=== PATIENT | female | born 1965 | race Caucasian/White ===

== ENCOUNTER 2018-07-22 08:36 | Day surgery (SDC) | payer OTHER ==
[~2018-07-22] VITALS: Ht 165.1 cm; Wt 101.2 kg
[~2018-07-22 08:36] MED LIST: ADULT LOW DOSE81 MG PO; AMITRIPTYLINE100 MG PO; CLINDAMYCIN HC300 MG PO; CO Q-1050 MG PO; DAILY VITAMIN1 EAC3 PO; FISH OIL500 MG PO; GEMFIBROZIL600 MG PO; GLIPIZIDE10 MG PO; GLUCOPHAGE1000 MG PO; GLUCOSAMINE &1 EAC1 PO; IBUPROFEN800 MG PO; IRON236 MG PO; LIPITOR80 MG PO; NEURONTIN100 MG PO; NORCO 10-325 T1 EACH PO; NORCO 5-325 TA1 EACH PO
--- NOTE | 2018-07-22 09:55 | NUR ---
07/22/18 0955 Dipika Chua 0933 PATIENT ARRIVES TO PACU SLEEPING, WAKES UP WITH VERBAL STIMULI, ANSWERS QUESTIONS APPROPRIATELY. RESP EVEN AND UNLABORED, ROOM AIR SATS ABOVE 90%. PATIENT DENIES PAIN OR NAUSEA. PASSING GAS.
--- NOTE | 2018-07-23 08:59 | OR ---
[facility] [address], [place] [address] Signed DATE OF OPERATION: 07/22/2018 SURGEON: Liz Agustin MD PREOPERATIVE DIAGNOSES: 1. Screening. 2. Iron-deficiency anemia. POSTOPERATIVE DIAGNOSES: 1. A 4 mm polyps at proximal left colon 10 cm, 8 cm, and 5 cm. 2. Moderate sigmoid diverticulosis. PROCEDURE: Colonoscopy with hot biopsy. ESTIMATED BLOOD LOSS: None. INDICATIONS: Radha is a 52-year-old female asked to see me for her initial colonoscopy. She had been significantly anemic and was bleeding from uterine polyp. She has had that taken care of and is doing much better. She has remained on her iron therapy now for a couple of years. She said to her knowledge she has improved. In addition, she reminded me I have already performed a colonoscopy for her . Consequently, she is familiar with the procedure along with our bowel prep. She told me she is quite nervous about having a colonoscopy. We spent quite a bit of time with her in the office, going over a colonoscopy and the reasoning behind it. To her knowledge, there is no family history of colon cancer or polyps. She understands the need for IV conscious sedation. She had expressed understanding and wished to proceed. PROCEDURE NOTE: Radha was taken into our endoscopy suite and placed in the left lateral decubitus position. She was given a total of 10 mg of Versed and 150 mcg of fentanyl. A digital rectal exam was performed and this was unremarkable. The adult colonoscope was introduced and advanced all around into the cecum under direct visualization of the camera. It took a rotating Radha into the supine position along with some additional sedation in order to get the camera through her long redundant colon finally through the splenic and had hepatic flexures and into the cecum itself. The appendiceal orifice was easily identified along with Crohn's foot. Multiple pictures were taken throughout for photodocumentation. After this, the scope was slowly withdrawn. The above-mentioned Electronically Signed By: LIZ AGUSTIN MD 07/23/18 0859 PATIENT NAME: RADHA GUPTA OPERATIVE REPORT DATE OF : 63 REPORT #: [id number] PHYSICIAN: LIZ AGUSTIN MD PCP: TEJA HOPPER MD REPORT IS CONFIDENTIAL AND NOT TO BE RELEASED WITHOUT AUTHORIZATION [facility] [address], [place] [address] Signed polyps were easily removed with the help of hot biopsy forceps. Again, she has a long redundant colon, particularly the transverse and left colon. In the sigmoid colon, she does have moderate diverticulosis. They are moderate in size, moderate in number, and scattered about. Once in the rectum, the scope had been retroflexed and there was very little in the way of internal hemorrhoid tissue. After this, the gas was suctioned out and the colonoscope removed. Radha tolerated her procedure quite well. RECOMMENDATIONS: I will see Radha back in my office in 7 to 14 days to review her results. Liz Agustin MD ALB/MODL /[id number] cc: MD Ervin Newton DO Andrew L Bower, MD Copies: TEJA HOPPER MD,LIZ JONES MD ~ Electronically Signed By: LIZ AGUSTIN MD 07/23/18 0859 PATIENT NAME: RADHA GUPTA OPERATIVE REPORT DATE OF : 63 REPORT #: [id number] PHYSICIAN: LIZ AGUSTIN MD PCP: TEJA HOPPER MD REPORT IS CONFIDENTIAL AND NOT TO BE RELEASED WITHOUT AUTHORIZATION
== END 2018-07-22 10:25 | disposition home or self-care (01) ==
LOC: DS 08:36 → OPS 08:36 → DS 09:45 → OPS 10:25
PROVIDERS: Colon & Rectal Surgery
PROC: 0DBE8ZZ Excision of Large Intestine, Via Natural or Artificial Opening Endoscopic (ICD-10-PCS; 2018-07-22)
PROC: 0DBM8ZZ Excision of Descending Colon, Via Natural or Artificial Opening Endoscopic (ICD-10-PCS; principal; 2018-07-22 09:45)
DX: D12.6 Benign neoplasm of colon, unspecified (principal); K63.5 Polyp of colon; K57.30 Diverticulosis of large intestine without perforation or abscess without bleeding; D50.9 Iron deficiency anemia, unspecified; E78.1 Pure hyperglyceridemia; E66.9 Obesity, unspecified; E11.40 Type 2 diabetes mellitus with diabetic neuropathy, unspecified; F17.210 Nicotine dependence, cigarettes, uncomplicated; Z68.37 Body mass index [BMI] 37.0-37.9, adult; Z79.84 Long term (current) use of oral hypoglycemic drugs; Z79.82 Long term (current) use of aspirin; Z79.899 Other long term (current) drug therapy
CPT/HCPCS: 88305; 99153; G0500; J2250; J3010; J7120

== ENCOUNTER 2023-01-27 11:08 | Emergency (ER) | payer OTHER ==
[~2023-01-27] VITALS: Ht 165.1 cm; Wt 87.9 kg
--- OUTSIDE RECORDS SUMMARY | ~2023-01-27 | XMS | Continuity of Care Document ---
Demographics + + + | Address | [address] | | | [place] [address] | + + + | Preferred Language | Unknown | + + + | Marital Status | | + + + | Judaism Affiliation | Unknown | + + + | Race | White | + + + | Ethnic Group | Not or | + + + Author + + + | Author | [facility] | + + + | Organization | [facility] | + + + | Address | [address] [facility] | | | [place] [address] | + + + | Phone | | + + + Care Team Providers + + + + | Care Event Av Operator Name | Role | Phone | + + + + Unavailable | Unavailable | + + + + Unavailable | Unavailable | + + + + Allergies and Intolerances + + + + + | date | description | facility | type | + + + + + | (no date) | No Known Allergies | [facility] | (unknown) | | | | | | + + + + + Encounters No information. Functional Status No information. Immunizations No information. Medications + + + + | date | description | facility | + + + + | 2023-01-13 00:00 | GABAPENTIN | [facility] | + + + + | 2023-01-13 00:00 | IBUPROFEN | [facility] | + + + + | 2023-01-13 00:00 | UBIDECARENONE | [facility] | + + + + | 2023-01-13 00:00 | ATORVASTATIN | [facility] | + + + + | 2014-01-25 00:00 | CLINDAMYCIN HCL | [facility] | + + + + | 2023-01-13 00:00 | ASPIRIN | [facility] | + + + + | 2023-01-13 00:00 | GEMFIBROZIL | [facility] | + + + + | 2023-01-13 00:00 | GLIPIZIDE | [facility] | + + + + | 2023-01-13 00:00 | NITROFURANTOIN MONOHYD | [facility] | | | MACROCR | | + + + + | 2023-01-13 00:00 | AMITRIPTYLINE HCL | [facility] | + + + + | 2014-01-25 00:00 | HYDROCODONE/APAP | [facility] | | | (10-325MG) | | + + + + | 2023-01-13 00:00 | HYDROCODONE | [facility] | | | BIT/ACETAMINOPHEN | | + + + + | 2023-01-13 00:00 | metFORMIN HCL | [facility] | + + + + Problems + + + + | date | description | facility | + + + + | 2022-11-11 08:15 | ENCNTR SCREEN MAMMOGRAM | [facility] | | | FOR MALIGNANT NEOPLASM OF | | | | BREAST | | + + + + | 2023-01-13 00:00 | Dehydration | [facility] | + + + + | 2023-01-13 00:00 | Urinary tract infection | [facility] | + + + + | 2023-01-13 00:00 | Liver mass | [facility] | + + + + | 2023-01-13 18:56 | TYPE 2 DIABETES MELLITUS | [facility] | | | WITHOUT COMPLICATIONS | | + + + + | 2023-01-13 18:56 | HYPERLIPIDEMIA, | [facility] | | | UNSPECIFIED | | + + + + | 2023-01-13 18:56 | DEHYDRATION | [facility] | + + + + | 2023-01-13 18:56 | NICOTINE DEPENDENCE, | [facility] | | | UNSPECIFIED, UNCOMPLICATED | | + + + + | 2023-01-13 18:56 | Essential (primary) | [facility] | | | hypertension | | + + + + | 2023-01-13 18:56 | CALCULUS OF GALLBLADDER | [facility] | | | W/O CHOLECYSTITIS W/O OBST | | + + + + | 2023-01-13 18:56 | URINARY TRACT INFECTION, | [facility] | | | SITE NOT SPECIFIED | | + + + + | 2023-01-13 18:56 | HEPATOMEGALY, NOT | [facility] | | | ELSEWHERE CLASSIFIED | | + + + + | 2023-01-13 18:56 | ANOREXIA | [facility] | + + + + | 2023-01-13 18:56 | HALFWAY (CURRENT) USE OF | [facility] | | | ASPIRIN | | + + + + | 2023-01-13 18:56 | HALFWAY (CURRENT) USE OF | [facility] | | | ORAL HYPOGLYCEMIC DRUGS | | + + + + | 2023-01-13 18:56 | OTHER CHART CLERK (CURRENT) | [facility] | | | DRUG THERAPY | | + + + + | 2023-01-23 08:00 | HEPATOMEGALY, NOT | [facility] | | | ELSEWHERE CLASSIFIED | | + + + + | 2023-01-23 08:02 | HEPATOMEGALY, NOT | [facility] | | | ELSEWHERE CLASSIFIED | | + + + + Procedures No information. Results/Labs +--------+--------+ + +---------+--------+ + | test | date | author | facility | value | unit | | | | | | | | | interpreta | | | | | | | | tion | +--------+--------+ + +---------+--------+ + + + | Result panel 1 | + + + + + + +---------+ + + | (unknown) | (no date) | (unknown) | [facility] | (no | (units | (unknown) | | | [facility] | value) | unknown) [facility] | | | | + + + + +---------+ + + + + | Result panel 2 | + + + + + + +---------+ + + | (unknown) | (no date) | (unknown) | [facility] | (no | (units | (unknown) | | | | [facility] | value) | unknown) | | | [facility] | | | | + + + + +---------+ + + + + | Result panel 3 | + + + + + + +---------+ + + | (unknown) | (no date) | (unknown) | [facility] | (no | (units | (unknown) | | | | [facility] | value) | unknown) | | | | [facility] | | | | + + + + +---------+ + + + + | Result panel 4 | + + + + + + +---------+ + + | (unknown) | (no date) | (unknown) | [facility] | (no | (units | (unknown) | | | | [facility] | value) | unknown) | | | | [facility] | | | | + + + + +---------+ + + + + | Result panel 5 | + + + + + + +---------+ + + | (unknown) | (no date) | (unknown) | [facility] | (no | (units | (unknown) | | | | [facility] | value) | unknown) | | | | [facility] | | | | + + + + +---------+ + + + + | Result panel 6 | + + + + + + +---------+ + + | (unknown) | (no date) | (unknown) | [facility] | (no | (units | (unknown) | | | | [facility] | value) | unknown) | | | | [facility] | | | | + + + + +---------+ + + + + | Result panel 7 | + + + + + + +---------+ + + | (unknown) | (no date) | (unknown) | [facility] | (no | (units | (unknown) | | | | [facility] | value) | unknown) | | | | | [facility] | | | | + + + + +---------+ + + + + | Result panel 8 | + + + + + + +---------+ + + | (unknown) | (no date) | (unknown) | [facility] | (no | (units | (unknown) | | | | [facility] | value) | unknown) | | | | | [facility] | | | | + + + + +---------+ + + + + | Result panel 9 | + + + + + + +---------+ + + | (unknown) | (no date) | (unknown) | [facility] | (no | (units | (unknown) | | | | [facility] | value) | unknown) | | | | | [facility] | | | | + + + + +---------+ + + + + | Result panel 10 | + + + + + + +---------+ + + | (unknown) | (no date) | (unknown) | [facility] | (no | (units | (unknown) | | | | [facility] | value) | unknown) | | | | [facility] | | | | + + + + +---------+ + + + + | Result panel 11 | + + + + + + +---------+ + + | (unknown) | (no date) | (unknown) | [facility] | (no | (units | (unknown) | | | | [facility] | value) | unknown) | | | | [facility] | | | | + + + + +---------+ + + + + | Result panel 12 | + + + + + + +---------+ + + | (unknown) | (no date) | (unknown) | [facility] | (no | (units | (unknown) | | | | [facility] | value) | unknown) | | | | [facility] | | | | + + + + +---------+ + + + + | Result panel 13 | + + + + + + +---------+ + + | (unknown) | (no date) | (unknown) | [facility] | (no | (units | (unknown) | | | | [facility] | value) | unknown) | | | | [facility] | | | | + + + + +---------+ + + + + | Result panel 14 | + + + + + + +---------+ + + | (unknown) | (no date) | (unknown) | [facility] | (no | (units | (unknown) | | | | [facility] | value) | unknown) | | | | [facility] | | | | + + + + +---------+ + + + + | Result panel 15 | + + + + + + +---------+ + + | (unknown) | (no date) | (unknown) | [facility] | (no | (units | (unknown) | | | | [facility] | value) | unknown) | | | | [facility] | | | | + + + + +---------+ + + + + | Result panel 16 | + + + + + + +---------+ + + | (unknown) | (no date) | (unknown) | [facility] | (no | (units | (unknown) | | | | [facility] | value) | unknown) | | | | [facility] | | | | + + + + +---------+ + + + + | Result panel 17 | + + + + + + +---------+ + + | (unknown) | (no date) | (unknown) | [facility] | (no | (units | (unknown) | | | | [facility] | value) | unknown) | | | | | [facility] | | | | + + + + +---------+ + + + + | Result panel 18 | + + + + + + +---------+ + + | (unknown) | (no date) | (unknown) | [facility] | (no | (units | (unknown) | | | | [facility] | value) | unknown) | | | | | [facility] | | | | + + + + +---------+ + + + + | Result panel 19 | + + + + + + +---------+ + + | (unknown) | (no date) | (unknown) | [facility] | (no | (units | (unknown) | | | | [facility] | value) | unknown) | | | | | [facility] | | | | + + + + +---------+ + + + + | Result panel 20 | + + + + + + +---------+ + + | (unknown) | (no date) | (unknown) | [facility] | (no | (units | (unknown) | | | | [facility] | value) | unknown) | | | | [facility] | | | | + + + + +---------+ + + + + | Result panel 21 | + + + + + + +---------+ + + | (unknown) | (no date) | (unknown) | [facility] | (no | (units | (unknown) | | | | [facility] | value) | unknown) | | | | | [facility] | | | | + + + + +---------+ + + + + | Result panel 22 | + + + + + + +---------+ + + | (unknown) | (no date) | (unknown) | [facility] | (no | (units | (unknown) | | | | [facility] | value) | unknown) | | | | | [facility] | | | | + + + + +---------+ + + + + | Result panel 23 | + + + + + + +---------+ + + | (unknown) | (no date) | (unknown) | [facility] | (no | (units | (unknown) | | | | | [facility] | value) | unknown) | | | | | [facility] | | | | + + + + +---------+ + + + + | Result panel 24 | + + + + + + +---------+ + + | (unknown) | (no date) | (unknown) | [facility] | (no | (units | (unknown) | | | | [facility] | value) | unknown) | | | | | [facility] | | | | + + + + +---------+ + + + + | Result panel 25 | + + + + + + +---------+ + + | (unknown) | (no date) | (unknown) | [facility] | (no | (units | (unknown) | | | | [facility] | value) | unknown) | | | | [facility] | | | | + + + + +---------+ + + + + | Result panel 26 | + + + + + + +---------+ + + | (unknown) | (no date) | (unknown) | [facility] | (no | (units | (unknown) | | | | [facility] | value) | unknown) | | | | [facility] | | | | + + + + +---------+ + + + + | Result panel 27 | + + + + + + +---------+ + + | (unknown) | (no date) | (unknown) | [facility] | (no | (units | (unknown) | | | | [facility] | value) | unknown) | | | | [facility] | | | | + + + + +---------+ + + + + | Result panel 28 | + + + + + + +---------+ + + | (unknown) | (no date) | (unknown) | [facility] | (no | (units | (unknown) | | | | [facility] | value) | unknown) | | | | [facility] | | | | + + + + +---------+ + + + + | Result panel 29 | + + + + + + +---------+ + + | (unknown) | (no date) | (unknown) | [facility] | (no | (units | (unknown) | | | | [facility] | value) | unknown) | | | | [facility] | | | | + + + + +---------+ + + + + | Result panel 30 | + + + + + + +---------+ + + | (unknown) | (no date) | (unknown) | [facility] | (no | (units | (unknown) | | | | [facility] | value) | unknown) | | | | [facility] | | | | + + + + +---------+ + + + + | Result panel 31 | + + + + + + +---------+ + + | (unknown) | (no date) | (unknown) | [facility] | (no | (units | (unknown) | | | | [facility] | value) | unknown) | | | | [facility] | | | | + + + + +---------+ + + + + | Result panel 32 | + + + + + + +---------+ + + | (unknown) | (no date) | (unknown) | [facility] | (no | (units | (unknown) | | | | [facility] | value) | unknown) | | | | [facility] | | | | + + + + +---------+ + + + + | Result panel 33 | + + + + + + +---------+ + + | (unknown) | (no date) | (unknown) | [facility] | (no | (units | (unknown) | | | | [facility] | value) | unknown) | | | | [facility] | | | | + + + + +---------+ + + + + | Result panel 34 | + + + + + + +---------+ + + | (unknown) | (no date) | (unknown) | [facility] | (no | (units | (unknown) | | | | [facility] | value) | unknown) | | | | [facility] | | | | + + + + +---------+ + + + + | Result panel 35 | + + + + + + +---------+ + + | (unknown) | (no date) | (unknown) | [facility] | (no | (units | (unknown) | | | | [facility] | value) | unknown) | | | | [facility] | | | | + + + + +---------+ + + + + | Result panel 36 | + + + + + + +---------+ + + | (unknown) | (no date) | (unknown) | [facility] | (no | (units | (unknown) | | | | [facility] | value) | unknown) | | | | [facility] | | | | + + + + +---------+ + + + + | Result panel 37 | + + + + + + +---------+ + + | (unknown) | (no date) | (unknown) | [facility] | (no | (units | (unknown) | | | | [facility] | value) | unknown) | | | | [facility] | | | | + + + + +---------+ + + + + | Result panel 38 | + + + + + + +---------+ + + | (unknown) | (no date) | (unknown) | [facility] | (no | (units | (unknown) | | | | [facility] | value) | unknown) | | | | [facility] | | | | + + + + +---------+ + + + + | Result panel 39 | + + + + + + +---------+ + + | (unknown) | (no date) | (unknown) | [facility] | (no | (units | (unknown) | | | | [facility] | value) | unknown) | | | | [facility] | | | | + + + + +---------+ + + + + | Result panel 40 | + + + + + + +---------+ + + | (unknown) | (no date) | (unknown) | [facility] | (no | (units | (unknown) | | | | [facility] | value) | unknown) | | | | [facility] | | | | + + + + +---------+ + + + + | Result panel 41 | + + + + + + +---------+ + + | (unknown) | (no date) | (unknown) | [facility] | (no | (units | (unknown) | | | | [facility] | value) | unknown) | | | | [facility] | | | | + + + + +---------+ + + + + | Result panel 42 | + + + + + + +---------+ + + | (unknown) | (no date) | (unknown) | [facility] | (no | (units | (unknown) | | | | [facility] | value) | unknown) | | | | [facility] | | | | + + + + +---------+ + + + + | Result panel 43 | + + + + + + +---------+ + + | (unknown) | (no date) | (unknown) | [facility] | (no | (units | (unknown) | | | | [facility] | value) | unknown) | | | | [facility] | | | | + + + + +---------+ + + + + | Result panel 44 | + + + + + + +---------+ + + | (unknown) | (no date) | (unknown) | [facility] | (no | (units | (unknown) | | | | [facility] | value) | unknown) | | | | [facility] | | | | + + + + +---------+ + + + + | Result panel 45 | + + + + + + +---------+ + + | (unknown) | (no date) | (unknown) | [facility] | (no | (units | (unknown) | | | | [facility] | value) | unknown) | | | | [facility] | | | | + + + + +---------+ + + + + | Result panel 46 | + + + + + + +---------+ + + | (unknown) | (no date) | (unknown) | [facility] | (no | (units | (unknown) | | | | [facility] | value) | unknown) | | | | [facility] | | | | + + + + +---------+ + + + + | Result panel 47 | + + + + + + +---------+ + + | (unknown) | (no date) | (unknown) | [facility] | (no | (units | (unknown) | | | | [facility] | value) | unknown) | | | | [facility] | | | | + + + + +---------+ + + + + | Result panel 48 | + + + + + + +---------+ + + | (unknown) | (no date) | (unknown) | [facility] | (no | (units | (unknown) | | | | [facility] | value) | unknown) | | | | [facility] | | | | + + + + +---------+ + + + + | Result panel 49 | + + + + + + +---------+ + + | (unknown) | (no date) | (unknown) | [facility] | (no | (units | (unknown) | | | | [facility] | value) | unknown) | | | | [facility] | | | | + + + + +---------+ + + + + | Result panel 50 | + + + + + + +---------+ + + | (unknown) | (no date) | (unknown) | [facility] | (no | (units | (unknown) | | | | [facility] | value) | unknown) | | | | [facility] | | | | + + + + +---------+ + + + + | Result panel 51 | + + + + + + +---------+ + + | (unknown) | (no date) | (unknown) | [facility] | (no | (units | (unknown) | | | | [facility] | value) | unknown) | | | | [facility] | | | | + + + + +---------+ + + + + | Result panel 52 | + + + + + + +---------+ + + | (unknown) | (no date) | (unknown) | [facility] | (no | (units | (unknown) | | | | [facility] | value) | unknown) | | | | [facility] | | | | + + + + +---------+ + + + + | Result panel 53 | + + + + + + +---------+ + + | (unknown) | (no date) | (unknown) | [facility] | (no | (units | (unknown) | | | | [facility] | value) | unknown) | | | | [facility] | | | | + + + + +---------+ + + Social History No information. Vital Signs + + + +---------+ | date | measurement | value | units | + + + +---------+ | 2023-01-13 00:00 | BMI | 32.2 | kg/m2 | + + + +---------+ | 2023-01-13 00:00 | BP_diastolic | 71 | mmHg | + + + +---------+ | 2023-01-13 00:00 | BP_systolic | 131 | mmHg | + + + +---------+ | 2023-01-13 00:00 | heart_rate | 102 | /min | + + + +---------+ | 2023-01-13 00:00 | height_metric | 165.1 | cm | + + + +---------+ | 2023-01-13 00:00 | height_standard | 65 | in | + + + +---------+ | 2023-01-13 00:00 | o2_saturation | 93 | % | + + + +---------+ | 2023-01-13 00:00 | respiration_rate | 18 | /min | + + + +---------+ | 2023-01-13 00:00 | temperature_metric | 36.89 | C | | | | | | + + + +---------+ | 2023-01-13 00:00 | | 98.4 | F | | | temperature_standar | | | | | d | | | + + + +---------+ | 2023-01-13 00:00 | weight_metric | 87.9 | kg | + + + +---------+ | 2023-01-13 00:00 | weight_standard | 193.79 | lb | + + + +---------+"
--- OUTSIDE RECORDS SUMMARY | ~2023-01-27 | XMS | Continuity of Care Document ---
Demographics + + + | Address | [address] | | | [place] [address] | + + + | Preferred Language | Unknown | + + + | Marital Status | | + + + | Sikhism Affiliation | Unknown | + + + | Race | White | + + + | Ethnic Group | Not or | + + + Author + + + | Author | [facility] | + + + | Organization | [facility] | + + + | Address | [address] [facility] | | | [place] [address] | + + + | Phone | | + + + Care Team Providers + + + + | Care Bakery Helper Name | Role | Phone | + [...] + | 2023-01-13 00:00 | GABAPENTIN | [facility] | + + + + | 2023-01-13 00:00 | IBUPROFEN | [facility] | + + + + | 2023-01-13 00:00 | UBIDECARENONE | [facility] | + + + + | 2023-01-13 00:00 | ATORVASTATIN | [facility] | + + + + | 2014-01-25 00:00 | CLINDAMYCIN HCL | [facility] | + + + + | 2023-01-13 00:00 | ASPIRIN | [facility] | + + + + | 2023-01-13 00:00 | GEMFIBROZIL | [facility] | + + + + | 2023-01-13 00:00 | GLIPIZIDE | [facility] | + + + + | 2023-01-13 00:00 | NITROFURANTOIN MONOHYD | [facility] | | | MACROCR | | + + + + | 2023-01-13 00:00 | AMITRIPTYLINE HCL | [facility] | + + + + | 2014-01-25 00:00 | HYDROCODONE/APAP | [facility] | | | (10-325MG) | | + + + + | 2023-01-13 00:00 | HYDROCODONE | [facility] | | | BIT/ACETAMINOPHEN | | + + + + | 2023-01-13 00:00 | metFORMIN HCL | [facility] | + + + + Problems + + + + | date | description | facility | + + + + | 2022-11-11 08:15 | ENCNTR SCREEN MAMMOGRAM | [facility] | | | FOR MALIGNANT NEOPLASM OF | | | | BREAST | | + + + + | 2023-01-13 00:00 | Dehydration | [facility] | + + + + | 2023-01-13 00:00 | Urinary tract infection | [facility] | + + + + | 2023-01-13 00:00 | Liver mass | [facility] | + + + + | [...] + + + | 2023-01-13 18:56 | PRISON (CURRENT) USE OF | [facility] | | | ASPIRIN | | + + + + | 2023-01-13 18:56 | PRISON (CURRENT) USE OF | [facility] | | | ORAL HYPOGLYCEMIC DRUGS | | + + + + | 2023-01-13 18:56 | OTHER ENTRY LEVEL STAFF ACCOUNTANT (CURRENT) | [facility] | | | DRUG [...]
[~2023-01-27 11:08] MED LIST changes: +MACROBID 100 M100 MG PO
--- OUTSIDE RECORDS SUMMARY | 2023-01-27 11:11 | XMS ---
PreManage Notification: HARRY GUPTA Security Community Relations Rep Events No recent Security Events currently on file CRITERIA MET - [facility] - [facility] - 2 Visits in 30 Days CARE PROVIDERS There are no care providers on record at this time. Scott has no Care Guidelines for this patient. [facility] VISIT COUNT (12 MO.) 2 [facility] TOTAL 2 NOTE: Visits indicate total known visits. ED/C VISIT TRACKING (12 MO.) 01/27[facility]2023 11:09 [facility] COMPLAINT: - ABNORMAL LABS 01/13/2023 18:[address] 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
[2023-01-27 20:37] VITALS: BP 117/56
--- NOTE | 2023-01-29 15:21 | EKG ---
[facility] [address] [place] [address] Signed Normal sinus rhythm Normal ECG When compared with ECG of 02-SEP-2016 12:06, No significant change was found Confirmed by ERIC ALMANZA MD ([id number]) on 01/29/2023 3:20:54 PM Electronically Signed By: ERIC ALMANZA 01/29/23 1521 PATIENT NAME: HARRY GUPTA ANDREI Electrocardiogram DATE OF : 63 PHYSICIAN: ERIC ALMANZA REPORT #: [id number] REPORT IS CONFIDENTIAL AND NOT TO BE RELEASED WITHOUT AUTHORIZATION
== END 2023-01-27 20:37 | disposition short-term general hospital (02) ==
LOC: ED 11:08
DX: C34.11 Malignant neoplasm of upper lobe, right bronchus or lung (principal); C79.9 Secondary malignant neoplasm of unspecified site; K76.82 Hepatic encephalopathy; I10 Essential (primary) hypertension; F17.200 Nicotine dependence, unspecified, uncomplicated; Z79.899 Other long term (current) drug therapy; Z79.82 Long term (current) use of aspirin; Z20.822 Contact with and (suspected) exposure to COVID-19
CPT/HCPCS: 36415; 71260; 76700; 80053; 81001; 82140; 83690; 85025; 87088; 93005; 93010; 99285 25; C9803; G0480; Q9967; U0002